=== PATIENT | female | born 2000 | race Caucasian/White ===

== ENCOUNTER 2023-01-17 12:03 | Emergency (ER) | payer BC ==
[~2023-01-17] VITALS: Ht 165.1 cm; Wt 56.0 kg
[2023-01-17 12:05] VITALS: BP 109/58
[2023-01-17] MEDS ORDERED: BENZ-38 PO (14:19)
== END 2023-01-17 14:25 | disposition home or self-care (01) ==
LOC: ER 12:05
DX: R07.89 Other chest pain (principal); R05.9 Cough, unspecified
CPT/HCPCS: 71045; 99283

== ENCOUNTER 2024-01-20 03:53 | Emergency (ER) | payer BC ==
[~2024-01-20] VITALS: Ht 167.6 cm; Wt 54.5 kg
[2024-01-20 04:01] VITALS: BP 105/64; PULSE 59; RESP 14; TEMP 98; O2SAT 100
[2024-01-20 04:22] LABS: BASOPHILS # (AUTO) 0.1 X10'3 (0-0.2); BASOPHILS % (AUTO) 1.1 % (0-1); EOSINOPHILS # (AUTO) 0.1 X10'3 (0-0.9); EOSINOPHILS % (AUTO) 1.8 % (0-6); HEMATOCRIT 37.4 % (35.0-45.0); LYMPHOCYTES # (AUTO) 2.6 X10'3 (1.1-4.8); LYMPHOCYTES % (AUTO) 39.1 % (21-51); MEAN CORPUSCULAR HEMOGLOBIN 28.2 PG (27.0-31.0); MEAN CORPUSCULAR HGB CONC 32.1 g/dL (33.0-36.5); MEAN CORPUSCULAR VOLUME 87.9 FL (78-98); MONOCYTES # (AUTO) 0.8 X10'3 (0-0.9); MONOCYTES % (AUTO) 11.4 % (2-12); NEUTROPHILS # (AUTO) 3.1 X10'3 (1.8-7.7); NEUTROPHILS % (AUTO) 46.6 % (42-75); PLATELET COUNT 285 X10'3 (140-440); RED BLOOD COUNT 4.25 X10'6 (4.20-5.60); RED CELL DISTRIBUTION WIDTH 15.6 % (11.5-14.5); WHITE BLOOD COUNT 6.8 X10'3 (4.5-11.0)
[2024-01-20 04:23] LABS: BILIRUBIN,URINE NEGATIVE (Neg); CLARITY,URINE CLEAR (Clear); COLOR,URINE YELLOW (Yellow); GLUCOSE, URINE NEGATIVE (Neg); KETONES,URINE NEGATIVE (Neg); LEUKOCYTE ESTERASE ,URINE NEGATIVE (Neg); NITRITES, URINE NEGATIVE (Neg); OCCULT BLOOD,URINE NEGATIVE (Neg); PROTEIN,URINE NEGATIVE (Neg); UROBILINOGEN,URINE 0.2 E.U/dL (0.2-1.0)
[2024-01-20 04:24] LABS: UA COLLECTION TYPE CLN CATCH MIDSTREAM
[2024-01-20 04:28] LABS: URINE HCG NEGATIVE (NEG)
[2024-01-20 04:53] LABS: ALANINE AMINOTRANSFERASE 18 U/L (12-78); ALBUMIN 4.1 G/DL (3.4-5.0); ALKALINE PHOSPHATASE 58 IU/L (46-116); ASPARTATE AMINO TRANSFERASE 9 U/L (10-37); BLOOD UREA NITROGEN 14 MG/DL (7-18); CALCIUM 8.9 MG/DL (8.5-10.1); CREATININE 1.17 MG/DL (0.40-0.90); GLUCOSE 88 MG/DL (70-104); LIPASE 44 U/L (16-77); eCRCL 65 ML/MIN; eGFR 58 ML/MIN
[2024-01-20 05:07] LABS: ALBUMIN/GLOBULIN RATIO 1.3 (1.1-1.5); ANION GAP 8 (8-16); BILIRUBIN,TOTAL 0.3 MG/DL (0.1-1.0); CHLORIDE 104 MMOL/L (99-107); POTASSIUM 3.8 MMOL/L (3.5-5.1); SODIUM 138 MMOL/L (135-145); TOTAL CARBON DIOXIDE 26.4 MMOL/L (24-32); TOTAL PROTEIN 7.2 G/DL (6.4-8.2)
== END 2024-01-20 05:06 | disposition left against medical advice (07) ==
LOC: ER 03:53
DX: R10.84 Generalized abdominal pain (principal); R11.2 Nausea with vomiting, unspecified; Z53.21 Procedure and treatment not carried out due to patient leaving prior to being seen by health care provider
CPT/HCPCS: 36415; 80053; 81003; 81025; 83690; 85025

== ENCOUNTER 2024-01-22 02:56 | Inpatient (IN) | payer BC ==
[~2024-01-22] VITALS: Ht 167.6 cm; Wt 52.5 kg
[2024-01-22 04:50] LABS: URINE HCG NEGATIVE (NEG)
[2024-01-22 04:59] LABS: BASOPHILS # (AUTO) 0.1 X10'3 (0-0.2); BASOPHILS % (AUTO) 1.3 % (0-1); EOSINOPHILS # (AUTO) 0.1 X10'3 (0-0.9); EOSINOPHILS % (AUTO) 0.6 % (0-6); HEMATOCRIT 37.6 % (35.0-45.0); HEMOGLOBIN 12.2 g/dl (12.0-16.0); LYMPHOCYTES # (AUTO) 2.1 X10'3 (1.1-4.8); LYMPHOCYTES % (AUTO) 25.2 % (21-51); MEAN CORPUSCULAR HGB CONC 32.5 g/dL (33.0-36.5); MEAN CORPUSCULAR VOLUME 86.3 FL (78-98); MEAN PLATELET VOLUME 7.2 FL (7.4-10.4); MONOCYTES # (AUTO) 0.8 X10'3 (0-0.9); MONOCYTES % (AUTO) 10.1 % (2-12); NEUTROPHILS # (AUTO) 5.3 X10'3 (1.8-7.7); NEUTROPHILS % (AUTO) 62.8 % (42-75); PLATELET COUNT 289 X10'3 (140-440); RED BLOOD COUNT 4.36 X10'6 (4.20-5.60); RED CELL DISTRIBUTION WIDTH 15.6 % (11.5-14.5); WHITE BLOOD COUNT 8.4 X10'3 (4.5-11.0)
[2024-01-22 05:06] LABS: URINE AMPHETAMINE SCREEN NEGATIVE (Neg); URINE BARBITUATE SCREEN NEGATIVE (Neg); URINE BENZODIAZEPINES SCREEN NEGATIVE (Neg); URINE CANNABINOID SCREEN POSITIVE (Neg); URINE COCAINE SCREEN NEGATIVE (Neg); URINE METHADONE SCREEN NEGATIVE (Neg); URINE PHENCYCLIDINE SCREEN NEGATIVE (Neg)
[2024-01-22] MEDS ORDERED: NO HOME MEDS (05:13)
[2024-01-22 05:16] LABS: ALBUMIN 4.4 G/DL (3.4-5.0); ANION GAP 8 (8-16); BLOOD UREA NITROGEN 11 MG/DL (7-18); BUN/CREATININE RATIO 11.2 (10.0-20.0); CALCIUM 9.9 MG/DL (8.5-10.1); CHLORIDE 104 MMOL/L (99-107); CREATININE 0.98 MG/DL (0.40-0.90); GLUCOSE 88 MG/DL (70-104); POTASSIUM 3.6 MMOL/L (3.5-5.1); SODIUM 136 MMOL/L (135-145); THYROID STIMULATING HORMONE 0.77 ulU/ml (0.34-4.50); TOTAL CARBON DIOXIDE 24.1 MMOL/L (24-32); eCRCL 74 ML/MIN; eGFR 71 ML/MIN
[2024-01-22 05:25] LABS: ETHANOL < 10 MG/DL (<10)
[2024-01-22] MEDS ORDERED: acetaminophen 325mg tablet PO PRN ×2 (22:00)
[2024-01-22] MEDS ORDERED: magnesium hydroxide 30ml (MOM) UD suspension PO PRN (22:00)
[2024-01-22] MEDS ORDERED: mag hydrox/Alum hydrox/simeth 30ml oral suspension PO PRN (22:00)
[2024-01-22] MEDS ORDERED: loperamide 2mg capsule PO PRN (22:00)
[2024-01-22 22:27] VITALS: BP 101/61; PULSE 50; RESP 15; TEMP 98.1; O2SAT 99
[2024-01-23 07:00] VITALS: BP 99/60; PULSE 75; RESP 14; TEMP 98.2; O2SAT 97
[2024-01-23 08:06] LABS: HEMOGLOBIN A1C 5.2 % (4.5-6.2)
[2024-01-23 08:39] LABS: CHOL/HDL RATIO 2.3 (0.00-4.99); CHOLESTEROL 156 MG/DL (0-200); HDL CHOLESTEROL 68 MG/DL (35-60); LDL CHOLESTEROL 76 MG/DL (50-100); TRIGLYCERIDES 42 MG/DL (20-135)
[2024-01-23] MEDS ORDERED: hydrOXYzine 25 MG tablet PO PRN (15:05)
[2024-01-23] MEDS: lurasidone 20mg tablet PO SCH (18:04)
[2024-01-23 19:00] VITALS: RESP 15; O2SAT 98
[2024-01-23 19:21] VITALS: BP 108/83; PULSE 82; RESP 16; TEMP 98.3; O2SAT 97
[2024-01-23] MEDS: diazepam inj 5 MG/ML inj. IM ONE (19:26)
[2024-01-24 07:30] VITALS: RESP 14; O2SAT 99
[2024-01-24] MEDS ORDERED: lurasidone 20mg tablet PO SCH (07:30)
[2024-01-24 08:46] VITALS: BP 91/41; PULSE 56; RESP 14; TEMP 98; O2SAT 99
[2024-01-24] MEDS: LORazepam 1 MG tablet PO ONE (10:43)
[2024-01-24] MEDS ORDERED: LORazepam 1 MG tablet PO PRN (11:20)
[2024-01-24 16:49] LABS: HEP B CORE AB, TOT NEGATIVE
[2024-01-24 16:50] LABS: HBSAG SCREEN NEGATIVE; HEP B CORE AB, IGM NEGATIVE
[2024-01-24] MEDS: lurasidone 20mg tablet PO SCH (17:37)
[2024-01-24 19:18] VITALS: BP 91/51; PULSE 62; RESP 18; TEMP 98.5; O2SAT 95
[2024-01-25 07:00] VITALS: RESP 16; O2SAT 47
[2024-01-25 07:26] VITALS: BP 85/40; PULSE 43; RESP 18; TEMP 98.7; O2SAT 100
[2024-01-25] MEDS ORDERED: HYDR-3686 PO (11:37)
[2024-01-25] MEDS ORDERED: ATI1T PO (11:37)
[2024-01-25] MEDS ORDERED: LURA40TA4 PO (11:37)
== END 2024-01-25 12:45 | disposition home or self-care (01) | DRG 885 ==
LOC: ER 02:56 → ED HOLD 15:42 → ADULT MH 21:45
PROVIDERS: ADMIT Psychiatry & Neurology Psychiatry; ATTEND Psychiatry & Neurology Psychiatry
PROC: GZHZZZZ Group Psychotherapy (ICD-10-PCS; principal; 2024-01-23)
PROC: GZ56ZZZ Individual Psychotherapy, Supportive (ICD-10-PCS; 2024-01-23)
DX: F39 Unspecified mood [affective] disorder (principal); R45.851 Suicidal ideations; E46 Unspecified protein-calorie malnutrition; Z68.1 Body mass index [BMI] 19.9 or less, adult; Z59.00 Homelessness unspecified; F31.9 Bipolar disorder, unspecified; F43.10 Post-traumatic stress disorder, unspecified; Z20.822 Contact with and (suspected) exposure to COVID-19; F90.9 Attention-deficit hyperactivity disorder, unspecified type; F17.210 Nicotine dependence, cigarettes, uncomplicated; F41.0 Panic disorder [episodic paroxysmal anxiety]; G47.00 Insomnia, unspecified; F60.9 Personality disorder, unspecified; Z90.49 Acquired absence of other specified parts of digestive tract; Z81.8 Family history of other mental and behavioral disorders; Z91.51 Personal history of suicidal behavior
CPT/HCPCS: 36415; 80048; 80061; 80305; 80320; 81025; 83036; 84443; 85025; 86704; 86705; 87081; 87340; 87811; 99285; J3360

== ENCOUNTER 2024-03-14 21:09 | Emergency (ER) | payer BC ==
[~2024-03-14] VITALS: Ht 167.6 cm; Wt 54.5 kg
[~2024-03-14 21:09] MED LIST: ATI1T PO; HYDR-3686 PO; LURA40TA4 PO
[2024-03-14 21:22] VITALS: BP 101/65; PULSE 52; RESP 16; TEMP 98.1; O2SAT 100
[2024-03-14 21:48] LABS: BASOPHILS # (AUTO) 0.1 X10'3 (0-0.2); BASOPHILS % (AUTO) 1.8 % (0-1); EOSINOPHILS # (AUTO) 0.1 X10'3 (0-0.9); EOSINOPHILS % (AUTO) 1.5 % (0-6); HEMATOCRIT 36.2 % (35.0-45.0); HEMOGLOBIN 11.8 g/dl (12.0-16.0); LYMPHOCYTES # (AUTO) 3.5 X10'3 (1.1-4.8); MEAN CORPUSCULAR HEMOGLOBIN 28.1 PG (27.0-31.0); MEAN CORPUSCULAR HGB CONC 32.7 g/dL (33.0-36.5); MEAN CORPUSCULAR VOLUME 86.2 FL (78-98); MEAN PLATELET VOLUME 7.7 FL (7.4-10.4); MONOCYTES # (AUTO) 0.6 X10'3 (0-0.9); MONOCYTES % (AUTO) 7.1 % (2-12); NEUTROPHILS % (AUTO) 47.6 % (42-75); PLATELET COUNT 279 X10'3 (140-440); RED CELL DISTRIBUTION WIDTH 14.7 % (11.5-14.5); WHITE BLOOD COUNT 8.3 X10'3 (4.5-11.0)
[2024-03-14 21:58] LABS: ALANINE AMINOTRANSFERASE 21 U/L (12-78); ALBUMIN/GLOBULIN RATIO 1.3 (1.1-1.5); ALKALINE PHOSPHATASE 65 IU/L (46-116); ANION GAP 3 (8-16); ASPARTATE AMINO TRANSFERASE 13 U/L (10-37); BILIRUBIN,TOTAL 0.3 MG/DL (0.1-1.0); BLOOD UREA NITROGEN 12 MG/DL (7-18); BUN/CREATININE RATIO 12.4 (10.0-20.0); CALCIUM 9.4 MG/DL (8.5-10.1); CHLORIDE 106 MMOL/L (99-107); CREATININE 0.97 MG/DL (0.40-0.90); GLUCOSE 91 MG/DL (70-104); LIPASE 37 U/L (16-77); POTASSIUM 3.9 MMOL/L (3.5-5.1); SODIUM 139 MMOL/L (135-145); TOTAL CARBON DIOXIDE 29.7 MMOL/L (24-32); eCRCL 78 ML/MIN; eGFR 72 ML/MIN
== END 2024-03-14 23:04 | disposition left against medical advice (07) ==
LOC: ER 21:10
DX: R10.30 Lower abdominal pain, unspecified (principal); R11.2 Nausea with vomiting, unspecified; R19.7 Diarrhea, unspecified; Z98.890 Other specified postprocedural states; Z53.21 Procedure and treatment not carried out due to patient leaving prior to being seen by health care provider
CPT/HCPCS: 36415; 80053; 83690; 85025